=== PATIENT | female | born 1965 | race Caucasian/White ===

== ENCOUNTER 2020-04-20 07:02 | Outpatient (CLI) | payer BC ==
--- NOTE | 2020-04-20 09:11 | ULT ---
ABDOMINAL ULTRASOUND: INDICATION: Images of the gallbladder show at least one echogenic gallstone. There is also an echogenic focus ad herent to the gallbladder wall seen separately which measures 5 mm suggesting a small polyp. Gallbla dder wall thickness appears within normal range. Common bile duct is normal caliber measured at 4-5 mm. The liver is echogenicity consistent with fatty infiltration. The spleen is unremarkable. Visu alized aorta and IVC appear unremarkable. The pancreas is partially imaged unremarkable. Both kidneys are imaged and appear unremarkable. IMPRESSION: 1. Cholelithiasis. Question gallbladder polyp. 2. Hepatic steatosis. POS: AGW
== END 2020-04-20 07:03 | disposition home or self-care (01) ==
LOC: BICULT 07:02
PROVIDERS: ATTEND Family Medicine
DX: R10.84 Generalized abdominal pain (principal); K80.20 Calculus of gallbladder without cholecystitis without obstruction; K76.0 Fatty (change of) liver, not elsewhere classified
CPT/HCPCS: 93975

== ENCOUNTER 2021-11-24 17:32 | Emergency (ER) | payer BC ==
[~2021-11-24 17:32] MED LIST: Iopamidol-370 76% 500 ML 1 ML ONE
[2021-11-24 18:06] LABS: #Eosinphils 0.1 thou/uL (0.0-0.7); #Lymphocytes 0.4 thou/uL (1.20-3.40); #Monocytes 0.3 thou/uL (0.11-0.59); #Neutrophils 9.1 thou/uL (1.40-6.50); %Eosinophils 0.6 % (0.0-10.0); %Lymphocytes 3.9 % (21.0-51.0); %Monocytes 2.7 % (0.0-10.0); %Neutrophils 92.7 % (42.0-75.0); Hemoglobin 15.7 g/dL (12.0-16.0); Mean Corpuscular HGB CONC 32.1 g/dL (32.0-36.0); Mean Corpuscular Hemoglobin 29.2 pg (27.0-31.0); Mean Corpuscular Volume 90.9 fL (78.0-98.0); Mean Platelet Volume 8.8 fL (7.4-10.4); Platelet Count 202 thou/uL (130-400); RBC Distribution Width 12.3 % (11.5-14.5); Red Blood Cell (RBC) Count 5.38 mill/uL (4.20-5.40); White Blood Cell (WBC) Count 9.8 thou/uL (4.8-10.8)
[2021-11-24] MEDS ORDERED: Ondansetron PF 4 MG/2 ML Vial ONE ×2 (18:06→20:38)
[2021-11-24 18:27] LABS: ALT (SGPT) 56 U/L (8-55); AST (SGOT) 39 U/L (5-34); Albumin 4.6 g/dL (3.5-5.0); Alkaline Phosphatase 91 U/L (40-110); Anion Gap 15 mmol/L (10-20); BUN (Urea Nitrogen) 17 mg/dL (9.8-20.1); Bilirubin, Total 0.9 mg/dL (0.2-1.2); Calc. Creatinine Clearance 0 mL/min (70-130); Calcium 9.4 mg/dL (7.8-10.44); Carbon Dioxide 24 mmol/L (22-29); Chloride 104 mmol/L (98-107); Glucose 130 mg/dL (70-105); Lipase 10 U/L (8-78); Potassium 3.9 mmol/L (3.5-5.1); Protein, Total 7.6 g/dL (6.0-8.3); Sodium 139 mmol/L (136-145)
[2021-11-24] MEDS ORDERED: Dicyclomine 20 MG TAB ONE (20:38)
[2021-11-24 20:46] LABS: Bilirubin Negative (Negative); Blood, Urine Negative (Negative); Clarity Clear (Clear); Glucose, Urine (Dipstick) Normal (Negative); Ketone, Urine Negative (Negative); Leukocyte Negative Leu/uL (Negative); Nitrite Negative (Negative); Protein, Urine (Dipstick) Negative (Neg-Trace); Specific Gravity, Urine 1.041 (1.002-1.036); Urobilinogen Normal mg/dL (Less than 2); pH, Urine 5.5 (5.0-9.0)
== END 2021-11-24 21:40 | disposition home or self-care (01) ==
LOC: ERS 17:32
DX: R10.13 Epigastric pain (principal); R10.811 Right upper quadrant abdominal tenderness; R50.9 Fever, unspecified; R11.2 Nausea with vomiting, unspecified; E78.5 Hyperlipidemia, unspecified
CPT/HCPCS: 36415; 74177; 76705; 80053; 81003; 83605; 83690; 84484; 85025; 87040; 87086; 93005; 96374; 96376; J2405; Q9967